=== PATIENT | male | born 1950 ===

== ENCOUNTER 2019-05-29 19:51 | Emergency (ER) | payer OTHER ==
--- NOTE | 2019-05-29 20:32 | EDM.PDOC ---
ED HPI GENERAL MEDICAL PROBLEM - General Chief Complaint: CPR in Progress Stated Complaint: CODE BLUE Time Seen by Provider: 05/29/19 20:25 Source of Information: Reports: EMS History Limitations: Reports: Other (EMS unaware of any specific medical history pertaining to patient. ) - History of Present Illness INITIAL COMMENTS - FREE TEXT/NARRATIVE: Patient found on living room floor at home. CPR initiated. 911 called. No additional information known other than patient had "cold" last week with cough but had improved per patient's . He was "normal" per and had gone to take a nap. Found on floor unresponsive/not breathing. Past Medical History Respiratory History: Reports: COPD Genitourinary History: Reports: Prostate Disorder Social & Family History - Tobacco Use Smoking Status *Q: Current Every Day Smoker - Alcohol Use Alcohol Use History: Yes Alcohol Use Frequency: Daily ED ROS GENERAL - Review of Systems Review Of Systems: Unable To Obtain Reason Not Obtained: Patient ED EXAM, GENERAL - Physical Exam Exam: See Below Free Text/Narrative:: Pupils fixed and dilated. No spontaneous breathing. Pulseless. Course - Orders/Labs/Meds Orders: Active Orders 24 hr Category Date Time Status CORONAVIRUS COVID-19 PCR [facility] Stat Lab 05/29/19 20:26 Ordered - Re-Assessments/Exams Free Text/Narrative Re-Assessment/Exam: 05/29/19 20:27 Patient had unwitnessed arrest/unknown amount of time pulseless/apneic. Approximately one hour of CPR by bystanders followed by EMS crew. PEA noted by EMS upon scene and continued to be in PEA. Received Epi x6, 4 shocks, sodium bicarb, and narcan while under treatment by EMS. Telly utilized for CPR. Intubated on scene. No response to interventions during that time. Upon arrival to ER patient noted to be dark blue from neck up, pupils fixed and dilated. Telly turned off for pulse check. Patient pulseless. PEA noted with rate in 30s. Given time down of an hour + and the above, code called and patient pronounced at 1958. Covid 19 testing requested given history of recent URI complaints, however patient's stated that the symptoms had resolved and she did not note any signs of illness today regarding her . Differential discussed with patient's . Cannot exclude [place]/arrhythmia/stroke/ PE as potential cause of . Departure - Departure Time of Disposition: 21:00 Disposition: 20 Clinical Impression: Cardiorespiratory arrest - Discharge Information *PRESCRIPTION DRUG MONITORING PROGRAM REVIEWED*: Not Applicable *COPY OF PRESCRIPTION DRUG MONITORING REPORT IN PATIENT GUILLE: Not Applicable Referrals: PCP,Unknown [Primary Care Provider] - Forms: ED Department Discharge Sepsis Event Note - Focused Exam Date Exam was Performed: 05/29/19 Time Exam was Performed: 21:00 - My Orders Last 24 Hours: My Active Orders 05/29/19 20:26 CORONAVIRUS COVID-19 PCR PHL Stat - Assessment/Plan Last 24 Hours: My Active Orders 05/29/19 20:26 CORONAVIRUS COVID-19 PCR PHL Stat
== END 2019-05-29 22:00 | disposition expired ==
LOC: LL.ED 19:51
DX: I46.9 Cardiac arrest, cause unspecified (principal); J44.9 Chronic obstructive pulmonary disease, unspecified; F17.200 Nicotine dependence, unspecified, uncomplicated
CPT/HCPCS: 92950; 99283; 99285-25